=== PATIENT | female | born 1985 | race American Indian/Alaskan Native ===

== ENCOUNTER 2017-12-07 13:48 | Outpatient (CLI) | payer OTHER | END 2017-12-07 14:58 | disposition home or self-care (01) | LOC: NST 13:48 | DX: Z34.83 Encounter for supervision of other normal pregnancy, third trimester (principal) ==

== ENCOUNTER 2017-12-08 01:52 | Inpatient (IN) | payer OTHER ==
[~2017-12-08] VITALS: Ht 170.2 cm; Wt 80.3 kg
[2017-12-10] MEDS ORDERED: CODE1TAB37 PO ×2 (08:50)
== END 2017-12-10 12:08 | disposition home or self-care (01) | DRG 775 ==
LOC: LDR 01:52 → SURG-SUITE 09:15
PROC: 0KQM0ZZ Repair Perineum Muscle, Open Approach (ICD-10-PCS; principal; 2017-12-08)
PROC: 10E0XZZ Delivery of Products of Conception, External Approach (ICD-10-PCS; 2017-12-08)
PROC: 4A1HXCZ Monitoring of Products of Conception, Cardiac Rate, External Approach (ICD-10-PCS; 2017-12-08)
PROC: 4A033R1 Measurement of Arterial Saturation, Peripheral, Percutaneous Approach (ICD-10-PCS; 2017-12-08)
DX: O70.1 Second degree perineal laceration during delivery (principal); Z37.0 Single live birth; Z3A.37 37 weeks gestation of pregnancy

== ENCOUNTER → 2019-06-30 | Outpatient (CLI) | payer OTHER ==
[~2019-06-30] MED LIST: CODE1TAB37 PO
== END | disposition home or self-care (01) ==
LOC: PRENATAL 11:00
DX: O99.89 Other specified diseases and conditions complicating pregnancy, childbirth and the puerperium (principal); O35.3XX0 Maternal care for (suspected) damage to fetus from viral disease in mother, not applicable or unspecified; O28.3 Abnormal ultrasonic finding on antenatal screening of mother

== ENCOUNTER → 2019-08-04 | Outpatient (CLI) | payer OTHER ==
[~2019-08-04] MED LIST changes: +LEVOTHYROXINE100 MCG PO; +PRENATAL CAPLE1 EAC1 PO
== END | disposition home or self-care (01) ==
LOC: PRENATAL 13:30
DX: O28.3 Abnormal ultrasonic finding on antenatal screening of mother (principal); O99.89 Other specified diseases and conditions complicating pregnancy, childbirth and the puerperium; O35.3XX1 Maternal care for (suspected) damage to fetus from viral disease in mother, fetus 1

== ENCOUNTER → 2019-09-06 | Outpatient (CLI) | payer OTHER ==
[~2019-09-06] MED LIST changes: -LEVOTHYROXINE100 MCG PO; -PRENATAL CAPLE1 EAC1 PO
== END | disposition home or self-care (01) ==
LOC: PRENATAL 15:24
DX: O26.849 Uterine size-date discrepancy, unspecified trimester (principal); O99.89 Other specified diseases and conditions complicating pregnancy, childbirth and the puerperium; O36.8199 Decreased fetal movements, unspecified trimester, other fetus; Z3A.34 34 weeks gestation of pregnancy

== ENCOUNTER 2019-09-28 10:07 | Inpatient (IN) | payer OTHER ==
[~2019-09-28] VITALS: Ht 170.2 cm; Wt 87.1 kg
[2019-09-30] MEDS ORDERED: PRENATAL CAPLE1 EAC1 PO (13:44)
[2019-09-30] MEDS ORDERED: LEVOTHYROXINE100 MCG PO (13:56)
== END 2019-10-02 13:18 | disposition home or self-care (01) | DRG 807 ==
LOC: LDR 10:07 → SURG-SUITE 09-30 06:54 → LDR 10-14 13:25
PROVIDERS: ADMIT Obstetrics & Gynecology
PROC: 10E0XZZ Delivery of Products of Conception, External Approach (ICD-10-PCS; principal; 2019-09-30)
PROC: 0KQM0ZZ Repair Perineum Muscle, Open Approach (ICD-10-PCS; 2019-09-30)
PROC: 3E033VJ Introduction of Other Hormone into Peripheral Vein, Percutaneous Approach (ICD-10-PCS; 2019-09-30)
PROC: 10907ZC Drainage of Amniotic Fluid, Therapeutic from Products of Conception, Via Natural or Artificial Opening (ICD-10-PCS; 2019-09-30)
PROC: 4A1HXCZ Monitoring of Products of Conception, Cardiac Rate, External Approach (ICD-10-PCS; 2019-09-30)
DX: O70.1 Second degree perineal laceration during delivery (principal); Z37.0 Single live birth; Z3A.38 38 weeks gestation of pregnancy; Z22.330 Carrier of Group B streptococcus